=== PATIENT | female | born 1955 | race Caucasian/White ===

== ENCOUNTER 2018-09-25 13:28 | Emergency (ER) | payer OTHER ==
[2018-09-25 13:35] VITALS: TEMP 98
[2018-09-25] MEDS ORDERED: GLUCAGON 1 MG/ML VIAL IVP STA (14:14)
[2018-09-25] MEDS ORDERED: METOCLOPRAMIDE 5 MG/ML 2 ML VIAL IVP STA (14:14)
--- NOTE | 2018-09-25 15:01 | ED ---
ENT HPI <Serg Guerrero - Last Filed: 09/25/18 15:58> - General Source: patient Mode of arrival: ambulatory Limitations: no limitations <Gloria Gardner - Last Filed: 09/25/18 19:41> - General Chief complaint: ENT Stated complaint: Pill caught in throat Time Seen by Provider: 09/25/18 13:52 - History of Present Illness Initial comments: Patient is a 63-year-old female who presents to the emergency Department with complaints of a pill stuck in her throat x 2 hours. Patient states she took an Sandra D pill and feels like it is stuck at the bottom of her throat. Patient states she has had this happen before with a piece of food approximately 2 years ago and needed to have it removed with a scope. Patient denies having trouble breathing. Patient states she has tried drinking fluids and is unable to keep it down. Patient has no other complaints at this time. (Gloria Gardner) - Related Data Home Medications Medication Instructions Recorded Confirmed amLODIPine BESYLATE/BENAZEPRIL 1 cap PO DAILY 12/17/16 09/25/18 [Lotrel 10-40 mg Capsule] Fexofenadine/Pseudoephedrine 1 tab PO DAILY 09/25/18 09/25/18 [Sandra-D 24 Hour Tablet] Allergies Allergy/AdvReac Type Severity Reaction Status Date / Time No Known Allergies Allergy Verified 09/25/18 13:47 Review of Systems ROS Other: All systems not noted in ROS Statement are negative. <Serg Guerrero - Last Filed: 09/25/18 15:58> ROS Other: All systems not noted in ROS Statement are negative. <Gloria Gardner - Last Filed: 09/25/18 19:41> ROS Statement: Those systems with pertinent positive or pertinent negative responses have been documented in the HPI. Past Medical History Past Medical History: Hypertension History of Any Multi-Drug Resistant Organisms: None Reported Additional Past Surgical History / Comment(s): thumb surgery. Past Psychological History: No Psychological Hx Reported Smoking Status: Former smoker Past Alcohol Use History: Occasional Past Drug Use History: None Reported <Gloria Gardner - Last Filed: 09/25/18 19:41> General Exam Limitations: no limitations <Gloria Gardner - Last Filed: 09/25/18 19:41> - General Exam Comments Initial Comments: GENERAL: Well-appearing, well-nourished and in no acute distress. HEAD: Atraumatic, normocephalic. EYES: Pupils equal round and reactive to light, extraocular movements intact, sclera anicteric, conjunctiva are normal. ENT: TMs normal, nares patent, oropharynx clear without exudates. Moist mucous membranes. NECK: Normal range of motion, supple without lymphadenopathy or JVD. LUNGS: Breath sounds clear to auscultation bilaterally and equal. No wheezes rales or rhonchi. HEART: Regular rate and rhythm without murmurs, rubs or gallops. ABDOMEN: Soft, nontender, normoactive bowel sounds. No guarding, no rebound. No masses appreciated. : Deferred EXTREMITIES: Normal range of motion, no pitting or edema. No clubbing or cyanosis. NEUROLOGICAL: Cranial nerves II through XII grossly intact. Normal speech, normal gait. PSYCH: Normal mood, normal affect. SKIN: Warm, Dry, normal turgor, no rashes or lesions noted. (Gloria Gardner) Course Vital Signs 09/25/18 09/25/18 13:33 16:39 Temperature 98 F Pulse Rate 94 82 Respiratory 16 18 Rate Blood Pressure 111/71 123/78 O2 Sat by Pulse 99 97 Oximetry Medical Decision Making <Serg Guerrero - Last Filed: 09/25/18 15:58> <Gloria Gardner - Last Filed: 09/25/18 19:41> - Medical Decision Making Medical decision making; this is a 63-year-old female with complaint of either food or pill bolus preventing esophageal passage. Patient is unable swallow her own saliva or warm water. After taken to relieve the obstruction with IV fluids, glucagon etc. without relief. Currently at this time patient continues to not be able to swallow her own saliva. Past history includes needing endoscopy to relieve the obstruction caused by [place] in 2017. I discussed the case with Dr. Grijalva on-call Urologist. She Wants the Endo Team Called for Endoscopy in Approximately [address] Guerrero (Serg Guerrero) Patient is a 63-year-old female presenting to the emergency Department with complaints of a pill stuck in her throat for the last hour. Patient states this has happened before 2 years ago with a piece of food. She states the last time she had to have a scope done to remove the piece of food. Patient has been unable to keep any fluids down. Patient did have a half a same lunch and then took an Sandra D pill. Patient's exam is unremarkable. Patient was given glucagon and Reglan and then drank some warm water without relief. Patient is unable to keep any fluids down. Case was discussed with Dr. Guerrero who contacted Dr. Jackman. Dr. Jackman and the Endo team successfully removed the pill. Patient is feeling better. Patient is stable for discharge. Vital signs remained stable during her entire stay. Return parameters were discussed with the patient and and they both verbalize understanding. (Gloria Gardner) Disposition <Serg Guerrero - Last Filed: 09/25/18 15:58> Is patient prescribed a controlled substance at d/c from ED?: No <Gloria Gardner - Last Filed: 09/25/18 19:41> Clinical Impression: Esophageal foreign body Disposition: HOME SELF-CARE Condition: Stable Instructions (If sedation given, give patient instructions): Esophageal Foreign Body (ED) Additional Instructions: Please return to the Emergency Department if symptoms worsen or any other concerns. Follow-up with Dr. Majano as discussed. Referrals: Manuel Lainez MD [Primary Care Provider] - 1-2 days
--- NOTE | 2018-09-25 16:13 | XR ---
EXAMINATION TYPE: XR chest 2V DATE OF EXAM: 09/25/2018 COMPARISON: Prior chest x-ray 12/17/2016 HISTORY: Pill stuck in throat TECHNIQUE: Frontal and lateral views of the chest are obtained. FINDINGS: There is no focal air space opacity, pleural effusion, or pneumothorax seen. The cardiac silhouette size is within normal limits. The osseous structures are intact. No radiopaque foreign b rahul evident. The aorta is dense. IMPRESSION: No acute cardiopulmonary process.
[2018-09-25 16:40] VITALS: BP 123/78; PULSE 82; RESP 18
[2018-09-25] MEDS ORDERED: SODIUM CHLORIDE 0.9% 1,000 ML IV ONE (18:40)
[2018-09-25] MEDS ORDERED: PROPOFOL 10 MG/ML 20 ML VIAL IV ONE (18:50)
[2018-09-25] MEDS ORDERED: SUCCINYLCHOLINE CHLORIDE 100 MG/5 ML SYR IV ONE (18:50)
--- NOTE | 2018-09-25 19:41 | PCN ---
PROCEDURE NOTE DATE OF DICTATION: 09/25/2018 BRIEF HISTORY: Patient is a 63-year-old pleasant white female who came into the emergency room with acute dysphagia. She took Sandra D this afternoon after lunch and she could not swallow any further. She had a similar episode approximately a year ago requiring an upper endoscopy with foreign body removal and was diagnosed with distal esophageal stricture. She denies any heartburn. PROCEDURE PERFORMED: Esophagogastroduodenoscopy with foreign body removal and biopsy. PREOPERATIVE DIAGNOSIS: Acute dysphagia. IV sedation by Anesthesia. PROCEDURE DESCRIPTION: After informed consent was obtained from the patient, the procedure was performed in the emergency room. The procedure was performed under general anesthesia. The Olympus 160 video endoscope was inserted in the mouth. Esophagus intubated without any difficulty. It was gradually advanced into the distal esophagus. There was a pill that was impacted in the distal esophagus. Using rat tooth forceps, the pill was held without any difficulty and was gently withdrawn out of the mouth along with the scope. The scope was re-intubated without any difficulty. It was gradually advanced into the distal esophagus. There was a stricture noted in the distal esophagus, and with gentle manipulation I was able to advance the scope into the stomach and duodenum. Bulb and the second part of the duodenum appeared normal. The scope was then withdrawn to the stomach, adequately insufflated with air, and upon careful examination the mucosa of the antrum, body, cardia and fundus appeared normal. Scope was then withdrawn to the esophagus. The GE junction was located at 39 cm from the incisors. The entire length of esophagus appeared slightly narrow, with almost an appearance of trachealization of the esophagus, very highly suspicious for severe eosinophilic esophagitis. Biopsies were done from the mid and distal esophagus and the patient tolerated the procedure well. IMPRESSION: 1. Distal esophageal stricture with pill impaction, status post removal as described above. 2. Trachealization of the entire esophagus consistent with eosinophilic esophagitis, status post biopsies. RECOMMENDATIONS: Findings of this examination were discussed with the patient as well as the family. She was advised to remain on a clear liquid diet today and soft diet tomorrow. She will follow up with the biopsy results and was advised to make a follow-up appointment in the office in 1-2 weeks. MMODL / IJN: [id number] /
== END 2018-09-25 19:48 | disposition home or self-care (01) ==
LOC: EC 13:28
DX: T17.298A Other foreign object in pharynx causing other injury, initial encounter (principal); I10 Essential (primary) hypertension; Z87.891 Personal history of nicotine dependence; Z79.899 Other long term (current) drug therapy
CPT/HCPCS: 99283; 96374; 96375; 96361; 71046; 43239; 43247; J1610; J2765; J0330; J2704; 88305; 88312

== ENCOUNTER 2023-08-27 19:22 | Emergency (ER) | payer MEDICARE, OTHER ==
[2023-08-27 19:29] VITALS: RESP 18; TEMP 97.2
--- NOTE | 2023-08-27 20:19 | ED ---
Recheck HPI - General Chief Complaint: Recheck/Abnormal Lab/Rx Stated Complaint: Tachycardia Time Seen by Provider: 08/27/23 20:14 Source: patient, RN notes reviewed, old records reviewed Mode of arrival: ambulatory Limitations: no limitations - History of Present Illness Initial Comments: This is a 68-year-old female to the ER. This patient presents today for evaluation regards to tachycardia elevated heart rate not feeling well shaky. Patient has no medical history takes no medications no travel history no significant sick contacts or other complaints. Patient does admit to daily drinking MD Complaint: other (Palpitations tachycardia increased heart rate) -: hour(s) Symptoms Since Prior Visit: no new symptoms Associated Symptoms: none Treatments Prior to Arrival: other (Tachycardia) - Related Data Home Medications Medication Instructions Recorded Confirmed amLODIPine BESYLATE/BENAZEPRIL 1 cap PO DAILY 12/17/16 08/27/23 [Lotrel 10-40 mg Capsule] Calcium Carbonate [Calcium] 600 mg PO DAILY 08/27/23 08/27/23 Rosuvastatin Calcium [Crestor] 5 mg PO DAILY 08/27/23 08/27/23 Allergies Allergy/AdvReac Type Severity Reaction Status Date / Time No Known Allergies Allergy Verified 08/27/23 21:05 Review of Systems ROS Statement: Those systems with pertinent positive or pertinent negative responses have been documented in the HPI. ROS Other: All systems not noted in ROS Statement are negative. Past Medical History Past Medical History: Hyperlipidemia, Hypertension History of Any Multi-Drug Resistant Organisms: None Reported Additional Past Surgical History / Comment(s): thumb surgery. Past Psychological History: No Psychological Hx Reported Smoking Status: Never smoker Past Alcohol Use History: Occasional Past Drug Use History: None Reported General Exam Limitations: no limitations General appearance: alert, anxious, in distress Head exam: Present: atraumatic, normocephalic, normal inspection Eye exam: Present: normal appearance, PERRL, EOMI. Absent: scleral icterus, conjunctival injection, periorbital swelling ENT exam: Present: normal exam, mucous membranes moist Neck exam: Present: normal inspection. Absent: tenderness, meningismus, lymphadenopathy Respiratory exam: Present: normal lung sounds bilaterally. Absent: respiratory distress, wheezes, rales, rhonchi, stridor Cardiovascular Exam: Present: normal rhythm, tachycardia, normal heart sounds. Absent: systolic murmur, diastolic murmur, rubs, gallop, clicks GI/Abdominal exam: Present: soft, normal bowel sounds. Absent: distended, tenderness, guarding, rebound, rigid Extremities exam: Present: normal inspection, full ROM, normal capillary refill. Absent: tenderness, pedal edema, joint swelling, calf tenderness Back exam: Present: normal inspection Neurological exam: Present: alert, oriented X3, CN II-XII intact Psychiatric exam: Present: normal affect, normal mood Skin exam: Present: warm, dry, intact, normal color. Absent: rash Course Vital Signs 08/27/23 08/27/23 08/27/23 19:26 21:19 22:57 Temperature 97.2 F L Pulse Rate 121 H 124 H Pulse Rate [ 111 H Right Supine Radial] Respiratory 18 18 Rate Blood Pressure 148/73 166/86 O2 Sat by Pulse 99 96 Oximetry 08/27/23 23:05 Temperature Pulse Rate 107 H Pulse Rate [ Right Supine Radial] Respiratory 18 Rate Blood Pressure 116/77 O2 Sat by Pulse 98 Oximetry - Reevaluation(s) Reevaluation #1: 08/27/23 21:57 Medical records reviewed Reevaluation #2: 08/27/23 21:57 Patient symptoms unchanged Reevaluation #3: 08/27/23 21:57 Patient informed of results and questions answered Reevaluation #4: Was pt. sent in by a medical professional or institution (KEESHA Messer, ELEVATOR EXAMINER, urgent care, hospital, or correction...) When possible be specific @ -no Did you speak to anyone other than the patient for history (EMS, parent, family, police, friend...)? What history was obtained from this source @ -no Did you review nursing and triage notes (agree or disagree)? Why? @ -agree Are old charts reviewed (outside hosp., previous admission, EMS record, old EKG, old radiological studies, urgent care reports/EKG's, correction records)? Repo rt findings @ -yes Differential Diagnosis (chest pain, altered mental status, abdominal pain women, abdominal pain men, vaginal bleeding, weakness, fever, dyspnea, syncope, headache, dizziness, GI bleed, back pain, seizure, CVA, palpatations, mental health, musculoskeletal)? @ -prior EKG interpreted by me (3pts min.). @ -yes X-rays interpreted by me (1pt min.). @ -no CT interpreted by me (1pt min.). @ -no U/S interpreted by me (1pt. min.). @ -no What testing was considered but not performed or refused? (CT, X-rays, U/S, labs)? Why? @ -none What meds were considered but not given or refused? Why? @ -none Did you discuss the management of the patient with other professionals (elder wilson i.eVance Messer, PA, ELEVATOR EXAMINER, lab, RT, psych nurse, manager social services, professional builder, teacher, examining officer, medical case worker)? Give summary @ -no Was smoking cessation discussed for >3mins.? @ -no Was critical care preformed (if so, how long)? @ -no Were there social determinants of health that impacted care today? How? (Homelessness, low income, unemployed, alcoholism, drug addiction, transportation, low edu. Level, literacy, decrease access to med. care, [facility], rehab)? @ -none Was there de-escalation of care discussed even if they declined (Discuss DNR or withdrawal of care, Hospice)? DNR status @ -no What co-morbidities impacted this encounter? (DM, HTN, Smoking, COPD, CAD, Cancer, CVA, ARF, Chemo, Hep., AIDS, mental health diagnosis, sleep apnea, morbid obesity)? @ -none Was patient admitted / discharged? Hospital course, mention meds given and route, prescriptions, significant lab abnormalities, going to OR and other pertinent info. @ - 68 female to ER for evaluation of significant tachycardia elevated heart rate here in the ER, symptoms improved and patient can be discharged lucia Discharge Undiagnosed new problem with uncertain prognosis? @ -no Drug Therapy requiring intensive monitoring for toxicity (Heparin, Nitro, Insulin, Cardizem)? @ -no Were any procedures done? @ -no Diagnosis/symptom? @ -Tachycardia Acute, or Chronic, or Acute on Chronic? @ -Acute Uncomplicated (without systemic symptoms) or Complicated (systemic symptoms)? @ -Complicated Side effects of treatment? @ -no Exacerbation, Progression, or Severe Exacerbation? @ -exacerbation Poses a threat to life or bodily function? How? (Chest pain, USA, DC, pneumonia, PE, COPD, DKA, ARF, appy, cholecystitis, CVA, Diverticulitis, Homicidal, Suicidal, threat to staff... and all critical care pts) @ -yes extremes of age Reevaluation #5: Differential Palpitations Ventricular arrhythmias, atrial arrhythmias, myocardial infarction, anemia, thyrotoxicosis, electrolyte imbalance, hypokalemia, pulmonary embolism, pulmonary disease, drugs, alcohol, anxiety, stress.... This is not meant to be an all-inclusive list. Medical Decision Making - Medical Decision Making 68 female to ER for evaluation of significant tachycardia elevated heart rate here in the ER, symptoms improved and patient can be discharged home - Lab Data Result diagrams: 08/27/23 20:07 08/27/23 20:07 Lab Results 08/27/23 08/27/23 08/27/23 Range/Units 20:07 20:07 20:07 WBC 6.4 (3.8-10.6) k/uL RBC 4.57 (3.80-5.40) m/uL Hgb 14.4 (11.4-16.0) gm/dL Hct 46.5 H (34.0-46.0) % MCV 101.6 H (80.0-100.0) fL MCH 31.6 (25.0-35.0) pg MCHC 31.1 (31.0-37.0) g/dL RDW 13.9 (11.5-15.5) % Plt Count 472 H (150-450) k/uL MPV 8.3 Neutrophils % 69 % Lymphocytes % 17 % Monocytes % 9 % Eosinophils % 2 % Basophils % 1 % Neutrophils # 4.4 (1.3-7.7) k/uL Lymphocytes # 1.1 (1.0-4.8) k/uL Monocytes # 0.5 (0-1.0) k/uL Eosinophils # 0.1 (0-0.7) k/uL Basophils # 0.1 (0-0.2) k/uL Macrocytosis Slight PT 9.5 L (10.0-12.5) sec INR 0.8 (<1.2) APTT 23.7 (22.0-30.0) sec Sodium 134 L (137-145) mmol/L Potassium 4.2 (3.5-5.1) mmol/L Chloride 100 (98-107) mmol/L Carbon Dioxide 21 L (22-30) mmol/L Anion Gap 13 mmol/L BUN 17 (7-17) mg/dL Creatinine 1.01 (0.52-1.04) mg/dL Est GFR (CKD-EPI)AfAm 66 (>60 ml/min/1.73 sqM) Est GFR (CKD-EPI)NonAf 57 (>60 ml/min/1.73 sqM) Glucose 161 H (74-99) mg/dL Calcium 9.7 (8.4-10.2) mg/dL Phosphorus (2.5-4.5) mg/dL Magnesium (1.6-2.3) mg/dL Total Bilirubin 0.9 (0.2-1.3) mg/dL AST 101 H (14-36) U/L ALT 85 H (4-34) U/L Alkaline Phosphatase 55 (38-126) U/L Troponin I (0.000-0.034) ng/mL Total Protein 7.7 (6.3-8.2) g/dL Albumin 5.0 (3.5-5.0) g/dL TSH (0.465-4.680) mIU/L Serum Alcohol mg/dL 08/27/23 08/27/23 Range/Units 20:07 21:32 WBC (3.8-10.6) k/uL RBC (3.80-5.40) m/uL Hgb (11.4-16.0) gm/dL Hct (34.0-46.0) % MCV (80.0-100.0) fL MCH (25.0-35.0) pg MCHC (31.0-37.0) g/dL RDW (11.5-15.5) % Plt Count (150-450) k/uL MPV Neutrophils % % Lymphocytes % % Monocytes % % Eosinophils % % Basophils % % Neutrophils # (1.3-7.7) k/uL Lymphocytes # (1.0-4.8) k/uL Monocytes # (0-1.0) k/uL Eosinophils # (0-0.7) k/uL Basophils # (0-0.2) k/uL Macrocytosis PT (10.0-12.5) sec INR (<1.2) APTT (22.0-30.0) sec Sodium (137-145) mmol/L Potassium (3.5-5.1) mmol/L Chloride (98-107) mmol/L Carbon Dioxide (22-30) mmol/L Anion Gap mmol/L BUN (7-17) mg/dL Creatinine (0.52-1.04) mg/dL Est GFR (CKD-EPI)AfAm (>60 ml/min/1.73 sqM) Est GFR (CKD-EPI)NonAf (>60 ml/min/1.73 sqM) Glucose (74-99) mg/dL Calcium (8.4-10.2) mg/dL Phosphorus 2.7 (2.5-4.5) mg/dL Magnesium 1.7 (1.6-2.3) mg/dL Total Bilirubin (0.2-1.3) mg/dL AST (14-36) U/L ALT (4-34) U/L Alkaline Phosphatase (38-126) U/L Troponin I <0.012 (0.000-0.034) ng/mL Total Protein (6.3-8.2) g/dL Albumin (3.5-5.0) g/dL TSH 3.660 (0.465-4.680) mIU/L Serum Alcohol <10 mg/dL - EKG Data -: EKG Interpreted by Me (EKG sinus tachycardia 111 NE 139 QRS 83 QTc 336) Disposition Clinical Impression: Tachycardia Disposition: HOME SELF-CARE Condition: Good Instructions (If sedation given, give patient instructions): Tachycardia (ED) Is patient prescribed a controlled substance at d/c from ED?: No Referrals: Kelton Aden MD [Primary Care Provider] - 1-2 days Time of Disposition: 22:50
[2023-08-27 20:36] LABS: Basophils # (A) 0.1 k/uL (0-0.2); Basophils % (A) 1 %; Eosinophils # (A) 0.1 k/uL (0-0.7); Eosinophils % (A) 2 %; HCT 46.5 % (34.0-46.0); HGB 14.4 gm/dL (11.4-16.0); Lymphocytes # (A) 1.1 k/uL (1.0-4.8); Lymphocytes % (A) 17 %; MCH 31.6 pg (25.0-35.0); MCHC 31.1 g/dL (31.0-37.0); MCV 101.6 fL (80.0-100.0); Macrocytosis Slight; Mean Platelet Volume 8.3; Monocytes # (A) 0.5 k/uL (0-1.0); Monocytes % (A) 9 %; Neutrophils # (A) 4.4 k/uL (1.3-7.7); Neutrophils % (A) 69 %; Platelet Count 472 k/uL (150-450); RBC 4.57 m/uL (3.80-5.40); RDW 13.9 % (11.5-15.5); WBC 6.4 k/uL (3.8-10.6)
[2023-08-27 20:41] LABS: ALT 85 U/L (4-34); AST 101 U/L (14-36); African American GFR (CKD) 66 (>60 ml/min/1.73 sqM); Alkaline Phosphatase 55 U/L (38-126); Anion Gap 13 mmol/L; Blood Urea Nitrogen 17 mg/dL (7-17); Calcium 9.7 mg/dL (8.4-10.2); Carbon Dioxide 21 mmol/L (22-30); Chloride 100 mmol/L (98-107); Glucose 161 mg/dL (74-99); Non-African American GFR(CKD) 57 (>60 ml/min/1.73 sqM); Potassium 4.2 mmol/L (3.5-5.1); Sodium 134 mmol/L (137-145); Total Bilirubin 0.9 mg/dL (0.2-1.3); Total Protein 7.7 g/dL (6.3-8.2)
[2023-08-27 20:57] LABS: INR 0.8 (<1.2); Partial Thromboplastin Time 23.7 sec (22.0-30.0); Prothrombin Time 9.5 sec (10.0-12.5)
[2023-08-27] MEDS: SODIUM CHLORIDE 0.9% 500 ML 500 ML IV STA (21:40)
[2023-08-27] MEDS: LORazepam 2 MG/ML INJ IV STA (21:42)
[2023-08-27 21:54] LABS: Alcohol <10 mg/dL; Magnesium 1.7 mg/dL (1.6-2.3); Phosphorus 2.7 mg/dL (2.5-4.5)
[2023-08-27] MEDS: SODIUM CHLORIDE 0.9% 1,000 ML IV STA (22:32)
[2023-08-27 23:06] VITALS: BP 116/77; PULSE 107
== END 2023-08-27 23:11 | disposition home or self-care (01) ==
LOC: EC 19:22
DX: R00.0 Tachycardia, unspecified (principal)
CPT/HCPCS: 36415; 93005; 80053; 84443; 83735; 84100; 84484; 85025; 85610; 85730; 99285; 96374; 96361; G0480; J2060; 80320

== ENCOUNTER → 2024-07-14 | Outpatient (CLI) | payer MEDICARE, BC ==
--- NOTE | 2024-07-14 08:40 | MR ---
EXAMINATION TYPE: MR brain wo/w con DATE OF EXAM: 07/14/2024 COMPARISON: NONE HISTORY: Recent CVA TECHNIQUE: Multiplanar, multisequence images of the brain and brainstem is performed without and with IV contras t, utilizing 7 mL intravenous Gadobutrol . FINDINGS: Diffusion weighted images demonstrate some areas of increased signal posterior right fronta l lobe without diminished signal on ADC mapping extending inferiorly corresponding to areas of T2 hyp erintensity in T1 hypointensity with some central linear enhancement corresponding to subacute infarc t. There is mild ventricular and sulcal prominence. There are a few scattered foci of T2 hyperintensity throughout the white matter bilaterally. Midline structures demonstrate normal morphology. The craniocervical junction appears within normal limits. Post contrast images demonstrate no enhancing masses. The dural venous sinuses appear patent . Bilateral aphakia is present. The paranasal sinuses are clear. IMPRESSION: 1. Confirmation of posterior right frontal lobe subacute infarct. 2. Background mild diffuse cerebral atrophy and chronic small vessel ischemic changes appreciated. 3. No suspicious enhancing masses. [facility], , 07/14/2024 8:37 AM
--- NOTE | 2024-07-14 08:42 | MR ---
EXAMINATION TYPE: MR angio head wo con DATE OF EXAM: 07/14/2024 COMPARISON: NONE HISTORY: Recent CVA TECHNIQUE: Time of flight images focusing on the [place] were performed without contrast.. 2-D and 3-D postprocessing imaging is performed on independent workstation. 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 Right vertebral artery is fill ing the basilar artery. Patent bilateral posterior communicating arteries are seen. No large vessel o cclusion or aneurysm in the posterior circulation. There is hypoplastic or poorly visualized anterior communicating artery. No large vessel occlusion or aneurysm in the anterior circulation. IMPRESSION: No large vessel occlusion or aneurysm at the level of the [place]. [facility], , 07/14/2024 8:39 AM
== END | disposition home or self-care (01) ==
LOC: RADMRIMAIN 07:44
PROVIDERS: ATTEND Psychiatry & Neurology Neurology
DX: I67.82 Cerebral ischemia (principal); I63.9 Cerebral infarction, unspecified; Z86.73 Personal history of transient ischemic attack (TIA), and cerebral infarction without residual deficits
CPT/HCPCS: 70544; 70553; A9585

== ENCOUNTER 2024-07-31 09:47 | Day surgery (SDC) | payer MEDICARE, BC ==
[2024-07-29 11:48] VITALS: BMI 21.9
[~2024-07-31 09:47] MED LIST: BENZOCAINE SPRAY 1 EACH MM PRN; MIDAZOLAM 2 MG/2 ML VIAL IV PRN; fentaNYL (PF) 50 MCG/ML 2 ML AMP IVP PRN
[2024-07-31 10:28] VITALS: TEMP 98.4
[2024-07-31] MEDS: BENZOCAINE SPRAY 1 EACH MM ONE ×2 (12:37→12:41)
[2024-07-31] MEDS: IV FLUID CONTINUATION 500 ML IV ONE (12:37)
[2024-07-31] MEDS: MIDAZOLAM 2 MG/2 ML VIAL IVP ONE (12:49)
[2024-07-31] MEDS: fentaNYL (PF) 50 MCG/ML 2 ML AMP IVP ONE (12:50)
[2024-07-31 13:41] VITALS: RESP 16
[2024-07-31 14:02] VITALS: BP 131/73; PULSE 93
--- NOTE | 2024-08-02 16:03 | P.PCN ---
Date of Procedure: 08/02/24 Operative Findings: Transesophageal echocardiogram report Performing physician Mike Delgado MD Indication Rule out cardiac source of embolization Complication None Level of sedation Moderate to sedation length of 18 minutes Procedure description After obtaining informed consent the patient was brought to the transesophageal echocardiogram room. The pulse oximetry and heart rate monitors were attached to the patient. Subsequently the patient was turned into the left lateral position and conscious sedation was performed using propofol and fentanyl. The patient's throat was sprayed using lidocaine before sedation was initiated. Subsequently the transesophageal echocardiogram was advanced to the mid esophageal where a 2D echocardiogram as well as color Doppler and pulse-wave Doppler performed. The procedure was completed with no complication Finding 1. No evidence of cardiac source of embolization 2. Intact left atrial appendage 3. Intact interatrial septum with no shunt 4. Intact intracardiac valves 5. Normal biventricular dimension and systolic function
== END 2024-07-31 14:03 | disposition home or self-care (01) ==
LOC: CATHCVL 09:47
PROVIDERS: ATTEND Internal Medicine Interventional Cardiology
DX: I47.10 Supraventricular tachycardia, unspecified (principal); I10 Essential (primary) hypertension; E78.5 Hyperlipidemia, unspecified; Z86.73 Personal history of transient ischemic attack (TIA), and cerebral infarction without residual deficits; Z79.82 Long term (current) use of aspirin; Z79.02 Long term (current) use of antithrombotics/antiplatelets; Z79.899 Other long term (current) drug therapy
CPT/HCPCS: 93312; 93320; 93325; 99152; J2250; J3010

== ENCOUNTER → 2024-08-11 | Day surgery (SDC) | payer MEDICARE, BC ==
[~2024-08-11] MED LIST changes: -BENZOCAINE SPRAY 1 EACH MM PRN; -MIDAZOLAM 2 MG/2 ML VIAL IV PRN; +SODIUM CHLORIDE 0.9% 1,000 ML IV SCH; -fentaNYL (PF) 50 MCG/ML 2 ML AMP IVP PRN
[2024-08-11 11:08] VITALS: BP 119/76; PULSE 72; RESP 16; TEMP 98.1
[2024-08-11] MEDS: MIDAZOLAM 2 MG/2 ML VIAL IVP ONE (11:50)
[2024-08-11] MEDS: IV FLUID CONTINUATION 500 ML IV ONE (11:51)
[2024-08-11] MEDS: ceFAZolin 2 GM in DEXTROSE 5% IN WATER 50 ML IVPB PRN (11:52)
[2024-08-11] MEDS: LIDOCAINE 1% INJ 10MG/ML (20 ML MDV) SQ ONE (11:52)
--- NOTE | 2024-08-11 12:08 | P.PCN ---
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 The right middle cerebral artery infarct Post-Op Diagnosis: Cryptogenic stroke Moderate conscious sedation time was 10 minutes patient was administered Versed. Oxygen saturation hemodynamics and EKG were monitored closely Clinical History: This lady has history of hypertension and hyperlipidemia. She has suffered from a CVA with good recovery involving the right middle cerebral artery. No evidence of atrial fibrillation on the 30-day event monitor. Given the fact all other workup is negative she was advised to have a loop recorder to rule out any occult atrial fibrillation. I talked to the patient at length explained to her the rationale risks benefits and options and she was brought in for the procedure after due discussion in full agreement to proceed Procedure: Under strict aseptic precautions and local anesthesia in the left fourth intercostal space a stab incision was made with the tool provided. Patient received intravenous antibiotic as the procedure began. Using a plunger device along with the loop recorder I advanced it in the lateral direction in the fourth intercostal space and then using a plunger the device was dropped into the site and advanced into the subcutaneous location. The device was therefore placed in the left fourth intercostal space in the lateral direction. Device was interrogated the signal was excellent with 0.59 mV. The device was activated and the settings were set for a cryptogenic stroke protocol. The loop recorder surveyor helper is [employer] model SR IQ 3+ ICM 5300, serial #[id number] Patient tolerated procedure well without any complication. There was trivial blood loss. Patient will be discharged later on today. Discharge instructions were given. Appointment was made in 1 week in the office for the device clinic and to see Dr. Cruz.
== END ==
LOC: CATHEP 09:39
PROVIDERS: ATTEND Internal Medicine Interventional Cardiology
DX: I47.19 Other supraventricular tachycardia (principal); I66.01 Occlusion and stenosis of right middle cerebral artery; I10 Essential (primary) hypertension; E78.5 Hyperlipidemia, unspecified; Z79.82 Long term (current) use of aspirin; Z79.02 Long term (current) use of antithrombotics/antiplatelets; Z79.899 Other long term (current) drug therapy; Z87.891 Personal history of nicotine dependence; Z86.73 Personal history of transient ischemic attack (TIA), and cerebral infarction without residual deficits; Z82.49 Family history of ischemic heart disease and other diseases of the circulatory system
CPT/HCPCS: 33285; C1764; J2250; J0690; J2003